=== PATIENT | female | born 1940 | race American Indian/Alaskan Native ===

== ENCOUNTER 2017-05-14 14:09 | Outpatient (CLI) | payer MEDICARE | END 2017-05-14 14:10 | disposition home or self-care (01) | LOC: BICMAMMO 14:09 | PROVIDERS: ATTEND Nurse Practitioner Family | DX: Z12.31 Encounter for screening mammogram for malignant neoplasm of breast (principal); R92.1 Mammographic calcification found on diagnostic imaging of breast; Z80.3 Family history of malignant neoplasm of breast | CPT/HCPCS: 77063; 77067 ==

== ENCOUNTER 2017-09-19 09:43 | Observation (INO) | payer MEDICARE ==
[2017-09-19 10:07] LABS: #Basophils 0.1 thou/uL (0.0-0.2); #Eosinphils 0.2 thou/uL (0.0-0.7); #Lymphocytes 3.3 thou/uL (1.20-3.40); #Monocytes 0.7 thou/uL (0.11-0.59); #Neutrophils 3.9 thou/uL (1.40-6.50); %Basophils 1.1 % (0.0-1.0); %Eosinophils 2.6 % (0.0-10.0); %Lymphocytes 39.9 % (21.0-51.0); %Monocytes 8.6 % (0.0-10.0); %Neutrophils 47.8 % (42.0-75.0); Hemoglobin 13.5 g/dL (12.0-16.0); Mean Corpuscular HGB CONC 33.5 g/dL (32.0-36.0); Mean Corpuscular Hemoglobin 29.6 pg (27.0-31.0); Mean Corpuscular Volume 88.5 fL (78.0-98.0); Mean Platelet Volume 9.3 fL (7.4-10.4); Platelet Count 209 thou/uL (130-400); RBC Distribution Width 12.6 % (11.5-14.5); Red Blood Cell (RBC) Count 4.55 mill/uL (4.20-5.40); White Blood Cell (WBC) Count 8.2 thou/uL (4.8-10.8)
[2017-09-19 10:30] LABS: ALT (SGPT) 11 U/L (8-55); AST (SGOT) 20 U/L (5-34); Albumin 4.7 g/dL (3.4-4.8); Alkaline Phosphatase 81 U/L (40-150); Anion Gap 15 mmol/L (10-20); BUN (Urea Nitrogen) 15 mg/dL (9.8-20.1); Bilirubin, Total 0.8 mg/dL (0.2-1.2); Calc. Creatinine Clearance 0 mL/min (70-130); Carbon Dioxide 29 mmol/L (23-31); Chloride 93 mmol/L (98-107); Estimated GFR-MDRD 40; Globulin 3.1 g/dL (2.4-3.5); Glucose 209 mg/dL (83-110); Lipase 23 U/L (8-78); Protein, Total 7.8 g/dL (6.0-8.3); Sodium 134 mmol/L (136-145)
[2017-09-19 10:34] LABS: CKMB 1.2 ng/mL (0-6.6); Potassium 2.8 mmol/L (3.5-5.1); Troponin I Less than 0.010 ng/mL (< 0.028)
[2017-09-19] MEDS ORDERED: Potassium Chloride 20 MEQ TAB ONE (10:56)
--- NOTE | 2017-09-19 11:04 | RAD ---
PORTABLE AP CHEST XRAY: DATE: 09/19/17. HISTORY: Chest pain for several days, dizziness and shortness of breath with exertion. FINDINGS: There is increased density seen in the right suprahilar region. This may be related to portable tech nique and superimposition of vascular structures, but a PA and lateral chest x-ray is recommended for further evaluation. Lungs are clear. Cardiac silhouette and pulmonary vasculature are within lucía l limits. Vascular calcifications are seen in a tortuous thoracic aorta. Osseous structures are int act. IMPRESSION: Increased density in the right suprahilar region which could be related to superimposition of vascula r structures, but given increased density in this region, a followup PA and lateral chest x-ray is re commended versus CT scan of the thorax. POS: JACINDA
--- NOTE | 2017-09-19 12:08 | RAD ---
SINGLE LATERAL VIEW OF THE CHEST: COMPARISON: 09/19/17 anterior chest radiograph. HISTORY: Right suprahilar fullness seen on chest x-ray. FINDINGS: A single lateral view of the chest was performed. No obvious mass is seen in the upper chest. Ather osclerotic calcifications are seen in the aorta. There is no evidence of consolidation, mass, or ple ural effusion. Degenerative changes are seen in the spine. IMPRESSION: No obvious mass identified. The opacity likely represents superimposition of normal vascular structu res. POS: SJ
[2017-09-19 13:16] VITALS: BMI 24.0
[2017-09-19 13:47] LABS: Troponin I Less than 0.010 ng/mL (< 0.028)
[2017-09-19] MEDS ORDERED: Nitroglycerin 0.4 MG TAB (25 Tab Bottle) SL PRN (15:10)
[2017-09-19] MEDS ORDERED: Acetaminophen 325 MG TAB PO PRN (15:11)
[2017-09-19] MEDS ORDERED: Ondansetron HCl/PF 4 MG/2 ML Vial SLOW IVP PRN (15:12)
--- NOTE | 2017-09-19 15:41 | HP ---
DATE OF ADMISSION: 09/19/2017 CHIEF COMPLAINT: Chest pain. HISTORY OF PRESENT ILLNESS: The patient is a 77-year-old female who states this pain has b een going off and on actually for several months when it hits it causes a tightness in her chest. It is usually substernal, but it could also be under the left shoulder, the right shoulder across her c hest in any position. She states it is squeezing in nature and she clenches her hands to demonstrate it. It lasts for several minutes and lets up. It does not radiate to her neck or shoulders. It do es not cause shortness of breath. It does not cause diaphoresis or nausea and she states I can only walk so far and then I am short of breath, but she does try to walk a lot and denies pain anywhere el se. PAST MEDICAL HISTORY: Significant for hyperlipidemia and hypertension. She has had primary ovarian cancer removed and survived. She has insomnia. She has arthritis. PAST SURGICAL HISTORY: Includes appendectomy, hysterectomy, tonsillectomy and I suppose with hystere ctomy that included an oophorectomy for the ovarian cancer. SOCIAL HISTORY: Does not drink alcohol, smoke or use illicit drugs. There is no psychiatric history . ALLERGIES: IODINE, CONTRAST DYE. CURRENT MEDICATIONS: Baby aspirin 81 mg daily, simvastatin 10 mg daily, Ambien 5 mg at bedtime, dilt iazem extended release 120 mg daily, cetirizine 10 mg p.r.n. allergies, vitamin D3 2000 International Units a day, hydrochlorothiazide 12.5 grams daily, and celecoxib 200 mg every day. REVIEW OF SYSTEMS: Constitutional: The patient currently denies any fever or chills. Eyes: She de nies any blurred vision, drainage or pain. EENT: Denies any drainage, irritation or soreness in her throat, ears or nose. Chest: She has the aforementioned squeezing pain that comes and goes, but de nies shortness of breath or cough. Cardiovascular: Denies palpitations, but has had the aforementio roxanne chest pain. Gastrointestinal: Denies nausea, vomiting, diarrhea. Genitourinary: Denies dysuri a, frequency, urgency. Musculoskeletal: Has arthritis, but it responds well to celecoxib and she de nies any painful range of motion of her joints. Skin: There are no new rashes or lesions. HEMATOLO GIC: There is no swelling or lymphatic edema noted. Neurological: She denies any trouble with ment ation, headaches or sensory changes. Allergic: She does have frequent sinus irritation and allergie s. PHYSICAL EXAMINATION: VITAL SIGNS: At the time of admission, blood pressure 139/74, pulse 106, respirations 20, temperatur e 98.5. Pain scale currently is 0, and O2 sat 97% on room air. GENERAL: This is an elderly female, alert, oriented, cooperative. HEENT: Normocephalic and atraumatic. EYES: Pupils equal, round, reactive to light with arcus senilis bilaterally. CARDIAC: TMs, nares, and pharynx are clear. NECK: Supple, trachea midline, no mass. CHEST: Clear to auscultation. HEART: Regular rate and rhythm, no murmur. BREAST: Exam deferred. BACK: Shows kyphosis, but no acute lesions. GENITOURINARY: Deferred. EXTREMITIES: Without clubbing, cyanosis, or edema. Normal range of motion is present. There is sym metrical wasting of the muscular tone and development in both upper and lower extremities. SKIN: Poor turgor, but no acute rashes or lesions. NEUROLOGIC: Cranial nerves are intact. Sensory exam is grossly intact. Mental status appears to be baseline normal. She does not repeat herself or ask the same questions over and over. Deep tendon reflexes are at a 1 and the knee jerks bilaterally. Babinski's, untested. Gait and cerebellar funct ion untested. LABORATORY AND X-RAY FINDINGS: The lab work from admission shows WBC 8.2, hemoglobin 13.5, hematocri t 40.3, platelet count of 209. The sodium 134, potassium 2.8, chloride 93, BUN 15, creatinine 1.29, glucose 209. CK-MB and troponins are negative so far. Liver functions unremarkable. Chest x-ray sh owed possible opacity in the right upper lobe. Repeat chest x-ray showed no acute intrathoracic find ings. Her rhythm strip shows normal sinus rhythm at this time. ASSESSMENT: 1. Chest pain, etiology probably noncardiac, but cannot definitively to clear that at this time. 2. Hypokalemia. 3. Arthritis. 4. Hypertension. 5. Dyslipidemia. 6. Insomnia. PLAN: Will be an echocardiogram, a stress test, serial reevaluation with Cardiology consult. We katiuska l also have nitroglycerin, oxygen prepared should her chest pain reoccur.
[2017-09-19 16:52] LABS: Troponin I Less than 0.010 ng/mL (< 0.028)
[2017-09-19] MEDS: NS 0.9% w/ 20 MEQ KCL 1,000 ML IV SCH (17:08)
[2017-09-19 19:05] LABS: Bilirubin Negative (Negative); Blood, Urine Negative (Negative); Clarity CLEAR (Clear); Glucose, Urine (Dipstick) Negative (Negative); Leukocyte Trace (Negative); Nitrite Negative (Negative); Protein, Urine (Dipstick) Negative (Neg-Trace); Specific Gravity, Urine 1.006 (1.002-1.036); Urobilinogen 0.2 mg/dL (0.2-1.0); pH, Urine 7.5 (5.0-9.0)
[2017-09-19 19:08] LABS: Bacteria/HPF None Seen HPF (None Seen); Hyaline Casts/LPF 0-3 HYALINE CAST LPF (0-3 Hyaline); RBC/HPF 0-3 HPF (0-3); Squamous Epithelial None Seen HPF (0-3); WBC/HPF 0-3 HPF (0-3)
[2017-09-19] MEDS ORDERED: Simvastatin 5 MG TAB PO SCH (21:00)
[2017-09-19] MEDS ORDERED: Zolpidem Tartrate 5 MG TAB PO SCH (21:00)
[2017-09-20] MEDS: NS 0.9% w/ 20 MEQ KCL 1,000 ML IV SCH ×2 (03:45→12:22)
[2017-09-20 06:48] LABS: Anion Gap 12 mmol/L (10-20); BUN (Urea Nitrogen) 10 mg/dL (9.8-20.1); Calc. Creatinine Clearance 50 mL/min (70-130); Calcium 9.1 mg/dL (7.8-10.44); Carbon Dioxide 25 mmol/L (23-31); Cardiac Risk 2.3 (Less than 4.5); Chloride 105 mmol/L (98-107); Cholesterol 166 mg/dl (< 200 Desired); Estimated GFR-MDRD 66; Glucose 90 mg/dL (83-110); HDL Cholesterol 71 mg/dL (>60 Neg Risk); LDL Cholesterol, Calculated 86 mg/dL; Sodium 138 mmol/L (136-145); Triglycerides 46 mg/dL (Less than 150)
[2017-09-20] MEDS ORDERED: Hydrochlorothiazide 25 MG TAB PO SCH (09:00)
--- NOTE | 2017-09-20 12:36 | NM ---
NUCLEAR MEDICINE CARDIAC PERFUSION EXAMINATION WITH EJECTION FRACTION: HISTORY: A 77-year-old female with chest pain, hypertension, and dyslipidemia. TECHNIQUE: A single-day nuclear medicine cardiac perfusion examination was performed. Rest images were obtained using 9.7 mCi of Technetium 99m sestamibi. Stress images were obtained using 30.5 mCi of Technetium 99m sestamibi and adenosine. FINDINGS: Tomographic images showed no fixed or reversible perfusion defects. Gated images show normal wall mo tion with an ejection fraction of greater than 70%. EDV is 56 mL. LHR is 0.5. TID is 1.4. IMPRESSION: No evidence of ischemia. POS: PADDY
[2017-09-20] MEDS ORDERED: ADENOSINE 60 MG/20 ML VIAL ONE (13:27)
--- NOTE | 2017-09-20 16:03 | CON ---
DATE OF SERVICE: 09/20/2017. REASON FOR CONSULTATION: Chest pain. HISTORY OF PRESENT ILLNESS: Ms. Baron is a very pleasant 77-year-old woman who has now been seen an d evaluated by [facility] in the past. She states she has intermittent chest pain over the last se veral months. The pain is described as a pain in her midsternal region with no significant radiation . No shortness of breath, diaphoresis, or other associated symptoms present. She has no previous hi story of underlying coronary artery disease. PAST MEDICAL HISTORY: Hyperlipidemia, hypertension, appendectomy, hysterectomy, tonsillectomy, oopho rectomy. SOCIAL HISTORY: No current tobacco or alcohol use. CURRENT HOME MEDICATIONS: Include aspirin, hydrochlorothiazide, sertraline, simvastatin, Ambien, vit mao D3, Cardizem. ALLERGIES: IODINE. REVIEW OF SYSTEMS: Ten-point review of systems reviewed and as above, otherwise negative. Please se e note from 09/19/2017. PHYSICAL EXAMINATION: VITAL SIGNS: Blood pressure 135/63, pulse 78, temperature 98.3. GENERAL: Patient is a pleasant female who is in no acute distress. The patient appears her stated age. VITAL SIGNS: NEUROLOGIC: The patient is alert and oriented times 3 with no focal neurologic deficits. HEENT: Sclerae without icterus. Mouth has moist mucous membranes with normal pallor. NECK: No JVD. Carotid upstroke brisk. No bruits bilaterally. LUNGS: Clear to auscultation with unlabored respirations. BACK: No scoliosis or kyphosis. CARDIAC: Regular rate and rhythm with normal S1 and S2. No S3 or S4 noted. No significant rubs, murmurs, thrills, or gallops noted throughout the precordium. PMI is not displaced. There is no parasternal heave. ABDOMEN: Soft, nontender, nondistended. No peritoneal signs present. No hepatosplenomegaly. No abnormal striae. EXTREMITIES: 2+ femoral and 2+ dorsalis pedis pulses. No cyanosis, clubbing, or edema. SKIN: No gross abnormalities. LABS: CK troponin negative. EKG: Normal sinus rhythm with nonspecific ST-T wave changes. IMPRESSION: Chest pain. RECOMMENDATIONS: Ms. Baron does have risk factors following coronary artery disease including hyper tension and hyperlipidemia. At this point, I would recommend a noninvasive stress study to assess fo r any areas of ischemia. If felt to be low risk or negative, would therefore treat medically. [facility] recommendation will be pending the above.
--- NOTE | 2017-09-20 16:10 | PRG ---
DATE OF SERVICE: 09/20/2017 SUBJECTIVE: Ms. Baron is doing well, no current complaints of chest pain or pressure noted. Her re cent stress study was negative for ischemia. OBJECTIVE: VITAL SIGNS: Blood pressure 135/66, pulse of 82, temperature 97.8. LUNGS: Clear to auscultation. CARDIAC: Regular rate and rhythm. ABDOMEN: Soft, nontender, nondistended. EXTREMITIES: No edema. IMPRESSION: 1. Atypical chest pain. 2. Hypertension. 3. Hyperlipidemia. RECOMMENDATIONS: Ms. Baron's stress study was negative for ischemia. Her symptoms are felt to be a typical. Would recommend close observation. From my standpoint, it would be okay for discharge with close outpatient followup.
[2017-09-20 16:59] VITALS: BP 145/66; TEMP 98.1
--- NOTE | 2017-09-21 05:46 | DIS ---
DATE OF ADMISSION: 09/19/2017 DATE OF DISCHARGE: 09/20/2017 CHIEF COMPLAINT ON ADMISSION: Chest pain. History and physical have previously been dictated. I will resume from there. HOSPITAL COURSE: The patient was placed in telemetry bed where every heart beat was monitored. Dr. Foy saw the patient in Cardiology consultation. A stress test was ordered to evaluate the etiology of her chest pain. In the interim, she was also started on Protonix 40 mg daily. Over the next 24 hours there were no further episodes of chest pain. Her nuclear stress test finally on the day of discharge returned negative for cardiac ischemia and she was going to be allowed to be discharged home. The etiology of her pain has been discussed as probably gastrointestinal in origin, so that we are going to continue on the Protonix 40 mg daily in an effort to see if it is GERD related. Should her chest pain continue we will either get a GI consult for endoscopy or go ahead and proceed with a sonogram to check out the situation with her gallbladder, thinking that it could be occult acalculous or chronic cholecystitis. The patient is in stable condition. Vital signs stable. She will be maintained on her usual medication plus the Protonix. The time required to evaluate the chart, review her test results and then examine the patient, counselor manager the patient and answering all her sons and her questions, then preparing the chart for discharge including paperwork, complete medication reconciliation and discharge summary came to 35 minutes. She will be discharged home and follow up with Dr. Martinez in 1-2 weeks. DISCHARGE DIAGNOSES: 1. Chest pain - atypical, noncardiac. 2. Hyperlipidemia. 3. Hypokalemia, corrected with IV fluid and potassium. On the day of discharge , her potassium level was 4.0 on admission it was 2.8. 4. Hyperlipidemia. 5. Arthritis. 6. Hypertension. 7. Insomnia. She was discharged home in stable condition. [facility]ITAL[facility]
== END 2017-09-20 20:00 | disposition home or self-care (01) ==
LOC: ERS 09:43 → INTOOBSV 12:35 → 2NO 12:35
PROVIDERS: ADMIT Specialist; ATTEND Specialist
DX: R07.89 Other chest pain (principal); E78.5 Hyperlipidemia, unspecified; E87.6 Hypokalemia; M19.90 Unspecified osteoarthritis, unspecified site; I10 Essential (primary) hypertension; G47.00 Insomnia, unspecified; Z79.82 Long term (current) use of aspirin; Z79.899 Other long term (current) drug therapy; Z91.041 Radiographic dye allergy status
CPT/HCPCS: 71045; 78452; 80048; 80053; 80061; 81001; 82553; 83690; 83735; 83880; 84484 ×2; 85025; 87086; 93005; 93017; 96360; 99285; A9500; 36415; G0378; J0153

== ENCOUNTER 2018-11-16 14:00 | Outpatient (CLI) | payer MEDICARE ==
--- NOTE | 2018-11-16 14:29 | RAD ---
TWO TO 3 LUMBAR SPINE SERIES: INDICATION: Low back pain. FINDINGS: There is accentuation of the lumbar lordosis. Mild retrolisthesis at the L2-3 level is present and t here is grade I spondylolisthesis at L4-5. Prominent degenerative disk space narrowing at L5-S1 is p resent. There is multilevel facet osteoarthritis. Left convexity curvature of the lumbar spine is p resent at apex L3 level. No acute compression fracture. There is a large volume of retained fecal material throughout the colon. Multiple metallic clips ove rlie the pelvis and left lower quadrant. There is incidental note of atherosclerosis of the abdomina l aorta. Pelvic phleboliths are present. IMPRESSION: Multilevel degenerative change at the lumbar spine as outlined above. POS: C
== END 2018-11-16 14:01 | disposition home or self-care (01) ==
LOC: BICRAD 14:00
PROVIDERS: ATTEND Specialist
DX: M54.5 Low back pain (principal); M47.816 Spondylosis without myelopathy or radiculopathy, lumbar region
CPT/HCPCS: 72100

== ENCOUNTER 2018-12-21 12:06 | Outpatient (CLI) | payer MEDICARE ==
--- NOTE | 2018-12-21 12:58 | RAD ---
4 views of the left elbow: 12/21/2018 COMPARISON: None HISTORY: Left elbow pain FINDINGS: No fracture or dislocation. No radiopaque foreign body or subcutaneous gas. No elbow joint effusion noted. IMPRESSION: No acute findings.
== END 2018-12-21 12:07 | disposition home or self-care (01) ==
LOC: BICRAD 12:06
PROVIDERS: ATTEND Specialist
DX: M25.522 Pain in left elbow (principal)

== ENCOUNTER 2019-04-18 11:43 | Outpatient (CLI) | payer MEDICARE ==
--- NOTE | 2019-04-18 12:42 | MMO ---
Bilateral MAMMO Bilat Screen [facility]. CLINICAL HISTORY: Patient is 79 years old and is seen for screening. The patient has the following family history of breast cancer: maternal aunt, malignant (generic). The patient has no personal history of cancer. VIEWS: The views performed were: bilateral craniocaudal with tomosynthesis and bilateral mediolateral oblique with tomosynthesis. FILMS COMPARED: The present examination has been compared to prior imaging studies performed at [facility] on 02/06/2014 and 02/07/2015, and at [facility] on 04/16/2016 and 05/14/2017. This study has been interpreted with the assistance of computer-aided detection. MAMMOGRAM FINDINGS: The breasts are heterogeneously dense, which could obscure a lesion on mammography. There are stable benign appearing calcifications seen in both breasts. There are also vascular calcifications. There are no suspicious masses, suspicious calcifications, or new areas of architectural distortion. IMPRESSION: THERE IS NO MAMMOGRAPHIC EVIDENCE OF MALIGNANCY. A ROUTINE FOLLOW-UP MAMMOGRAM IN 1 YEAR IS RECOMMENDED. THE RESULTS OF THIS EXAM WERE SENT TO THE PATIENT. ACR BI-RADS Category 2 - Benign finding MAMMOGRAPHY NOTE: 1. A negative mammogram report should not delay a biopsy if a dominant of clinically suspicious mass is present. 2. Approximately 10% to 15% of breast cancers are not detected by mammography. 3. Adenosis and dense breasts may obscure an underlying neoplasm. Reported by: ALICE CASEY MD Electonically Signed: [id number]
== END 2019-04-18 11:44 | disposition home or self-care (01) ==
LOC: BICMAMMO 11:43
PROVIDERS: ATTEND Specialist
DX: Z12.31 Encounter for screening mammogram for malignant neoplasm of breast (principal); Z80.3 Family history of malignant neoplasm of breast
CPT/HCPCS: 77063; 77067

== ENCOUNTER 2022-09-09 13:58 | Outpatient (CLI) | payer MEDICARE | END 2022-09-09 13:59 | disposition home or self-care (01) | LOC: BICRAD 13:58 | PROVIDERS: ATTEND Specialist | DX: M25.511 Pain in right shoulder (principal); M19.011 Primary osteoarthritis, right shoulder ==